=== PATIENT | female | born 1935 | race Caucasian/White ===

== ENCOUNTER → 2017-08-07 | Outpatient (CLI) | payer OTHER, BC | LOC: RAD 00:35 | DX: Z12.31 Encounter for screening mammogram for malignant neoplasm of breast (principal) ==

== ENCOUNTER → 2019-03-14 | Outpatient (CLI) | payer OTHER, BC | LOC: RAD 15:01 | DX: Z12.31 Encounter for screening mammogram for malignant neoplasm of breast (principal) ==

== ENCOUNTER 2020-06-12 17:03 | Emergency (ER) | payer OTHER, BC ==
[~2020-06-12] VITALS: Ht 157.5 cm; Wt 50.4 kg
[2020-06-12 17:42] LABS: BASOPHILS 0.6 % (0.0-2.0); EOSINOPHILS 1.3 % (0.0-3.0); HEMATOCRIT 35.5 % (37.0-47.0); HEMOGLOBIN 11.7 gm/dL (12.0-15.0); LYMPHOCYTES 20.1 % (24.0-44.0); MCH 30.9 pg (26.0-34.0); MCV 93.6 fL (80.0-100.0); MONOCYTES 8.2 % (1.0-8.0); PLATELET COUNT 317 thou/uL (150-400); POLYS 69.8 % (36.0-66.0); RDW 13.3 % (10.5-14.5)
[2020-06-12 17:50] LABS: URINE BILIRUBIN NEGATIVE (Negative); URINE BLOOD NEGATIVE (Negative); URINE CLARITY CLEAR; URINE COLOR YELLOW; URINE GLUCOSE-RANDOM* 3+ (Negative); URINE KETONES 1+ (Negative); URINE LEUKOCYTES-REFLEX NEGATIVE (Negative); URINE NITRITE-REFLEX NEGATIVE (Negative); URINE PROTEIN (DIPSTICK) NEGATIVE (Negative); URINE UROBILINOGEN 0.2 E.U./dl (0.2-1.0)
[2020-06-12 17:53] LABS: PROTIME 9.5 Seconds (9.3-11.4)
[2020-06-12 18:03] LABS: CALCIUM 9.8 mg/dL (8.5-10.1); CREATININE 1.1 mg/dL (0.6-1.0)
[2020-06-12 18:06] LABS: POTASSIUM 5.1 mmol/L (3.5-5.1)
[2020-06-12 18:19] VITALS: BP 170/82
--- NOTE | 2020-06-13 12:45 | EKG ---
[address] [address] ELECTROCARDIOGRAM REPORT Name: QASIM JONES Room #: [id number] Admission: 06/12/20 Attend Phys: Discharge: 06/12/20 Date of : 33 Report #: [id number] [facility] ED Test Date: 2020-06-12 Test Time: 18:00:52 Pat Name: QASIM JONES Department: Room: Gender: F Hat Lacer: linden : 1935 Requested By: Terese Muse Order Number: [id number] MD: Kishan Arnold Measurements Intervals [place] Rate: 101 P: 72 OR: 199 QRS: 32 QRSD: 87 T: 20 QT: 348 QTc: 452 Interpretive Statements Sinus tachycardia Otherwise normal tracing No previous ECG available for comparison Electronically Signed On 06-13-2020 12:45:22 SCREEN TENDER HELPER by Kishan Arnold [email or web address] <ELECTRONICALLY SIGNED> By: Kishan Arnold MD, [facility] 06/13/20 1245 1800 [facility] Kishan Arnold MD, FACC /EPI
== END 2020-06-12 18:57 | disposition home or self-care (01) ==
LOC: ER 17:03
PROVIDERS: Emergency Medicine
DX: G45.9 Transient cerebral ischemic attack, unspecified (principal); R73.9 Hyperglycemia, unspecified

== ENCOUNTER 2021-02-17 22:17 | Inpatient (IN) | payer OTHER, BC ==
[~2021-02-17] VITALS: Ht 157.5 cm; Wt 55.4 kg
[2021-02-17 22:19] VITALS: BP 160/84
[2021-02-17 23:41] LABS: HEMATOCRIT 36.2 % (37.0-47.0); HEMOGLOBIN 12.1 gm/dL (12.0-15.0); MCH 30.9 pg (26.0-34.0); MCHC 33.4 g/dL (28.0-37.0); MCV 92.5 fL (80.0-100.0); PLATELET COUNT 329 thou/uL (150-400); RBC 3.92 mil/uL (4.20-5.00); RDW 13.3 % (10.5-14.5)
[2021-02-17 23:46] LABS: CALCIUM 8.9 mg/dL (8.5-10.1); POTASSIUM 4.4 mmol/L (3.5-5.1)
[2021-02-17 23:53] LABS: APTT 24.3 Seconds (24.5-32.8); INR 0.9; PROTIME 9.9 Seconds (10.5-12.1)
[2021-02-17 23:55] LABS: TOTAL BILIRUBIN 0.2 mg/dL (0.2-1.0)
[2021-02-17 23:56] LABS: ALBUMIN 3.9 g/dL (3.4-5.0)
[2021-02-18] VITALS (7 sets, daily range): BP systolic 146–170; BP diastolic 80–99
[2021-02-18 00:43] LABS: URINE BILIRUBIN NEGATIVE (Negative); URINE BLOOD NEGATIVE (Negative); URINE CLARITY CLEAR; URINE COLOR YELLOW; URINE GLUCOSE-RANDOM* 3+ (Negative); URINE KETONES 1+ (Negative); URINE LEUKOCYTES-REFLEX NEGATIVE (Negative); URINE NITRITE-REFLEX NEGATIVE (Negative); URINE PROTEIN (DIPSTICK) NEGATIVE (Negative); URINE SPECIFIC GRAVITY 1.025 (1.005-1.035); URINE UROBILINOGEN 0.2 E.U./dl (0.2-1.0)
[2021-02-18 00:49] LABS: ABSOLUTE NEUTROPHILS 23.5 thou/uL (1.4-8.2); ANISOCYTOSIS 1+; PLATELET ESTIMATE NORMAL; POIKILOCYTOSIS 1+
[2021-02-18] MEDS ORDERED: LEVO-T75 MCG PO (00:58)
[2021-02-18] MEDS ORDERED: PRAVACHOL40 MG PO (00:59)
[2021-02-18] MEDS ORDERED: ASA81BEC PO (00:59)
[2021-02-18] MEDS ORDERED: NORVASC5 M1 PO (00:59)
[2021-02-18] MEDS ORDERED: MELATONIN5 MG SUBLING (01:00)
[2021-02-18] MEDS ORDERED: REPAGLINIDE1 MG PO (01:00)
[2021-02-18] MEDS ORDERED: LISINOPRIL20 MG PO (01:00)
[2021-02-18 04:44] LABS: HEMATOCRIT 35.4 % (37.0-47.0); HEMOGLOBIN 11.5 gm/dL (12.0-15.0); MCH 30.1 pg (26.0-34.0); MCHC 32.5 g/dL (28.0-37.0); MCV 92.7 fL (80.0-100.0); RBC 3.82 mil/uL (4.20-5.00); RDW 13.4 % (10.5-14.5); WBC 21.8 thou/uL (4.0-11.0)
[2021-02-18 05:42] LABS: CALCIUM 8.9 mg/dL (8.5-10.1); POTASSIUM 4.5 mmol/L (3.5-5.1)
--- NOTE | 2021-02-18 12:45 | NUR ---
Pt transferred to unit from ED. Pt alert but forgetful. Lt arm sling in place. Denies pain. IVF infusing. Ortho, neurology, and hospitalist doctor consulted. Dr Bustamante is out of the office and will be unable to be consulted at this time. Admission completed. Call light within reach. Fall precautions in place. Will continue to monitor.
--- NOTE | 2021-02-18 13:22 | EKG ---
[address] [place] [address] ELECTROCARDIOGRAM REPORT Name: QASIM JONES Room #: 436-P ADM IN M.R.#: [id number] Admission: 02/18/21 Attend Phys: Carlos Rajan, Discharge: Date of : 33 Report #: [id number] [facility] ED Test Date: 2021-02-18 Test Time: 00:24:30 Pat Name: QASIM JONES Department: Room: 436 Gender: F Correctional Officer Chief: : 1935 Requested By: Manny Luther Order Number: [id number] MD: Mendel Caro Measurements Intervals [place] Rate: 122 P: 54 PA: 186 QRS: 10 QRSD: 90 T: 5 QT: 302 QTc: 431 Interpretive Statements Sinus tachycardia LVH by voltage Compared to ECG 06/12/2020 18:00:52 Left ventricular hypertrophy now present Electronically Signed On 02-18-2021 13:22:35 CDT by Mendel Caro [email or web address] <ELECTRONICALLY SIGNED> By: Mendel Caro MD, [facility] 02/18/21 1322 0024 0024 Mendel Caro MD, FACC /EPI
[2021-02-19] VITALS (8 sets, daily range): BP systolic 148–170; BP diastolic 86–100
--- NOTE | 2021-02-19 05:22 | NUR ---
RECEIVED CARE OF THIS PATIENT AT 1900. PATIENT ALERT AND ORIENTED TO PERSON AND PLACE. PATIENT NPO [place] FOR SURGERY THIS AM. L EST IN SLING. BRUISING NOTED ON L SHOULDER. ACCUCHECK WAS 256, RECEIVED 6 UNITS LISPRO INSULIN. UP TO BS WITH ASSIST OF ONE. DENIES PAIN. SLEPT MOST OF NIGHT.
[2021-02-19 06:32] LABS: HEMATOCRIT 32.4 % (37.0-47.0); HEMOGLOBIN 10.8 gm/dL (12.0-15.0); MCH 31.4 pg (26.0-34.0); MCHC 33.4 g/dL (28.0-37.0); RBC 3.45 mil/uL (4.20-5.00); RDW 13.6 % (10.5-14.5)
[2021-02-19 06:47] LABS: CALCIUM 8.5 mg/dL (8.5-10.1); CREATININE 0.8 mg/dL (0.6-1.0); POTASSIUM 3.7 mmol/L (3.5-5.1)
--- NOTE | 2021-02-19 10:11 | NUR ---
Assumed care of pt at 0700. Pt alert but forgetful. Denies pain. x1 assist to bedside commode. Left arm sling in place. IVF and IV antibiotics infusing. Plan to have surgery today. NPO since midnight. Family aware. Call light within reach. Fall precautions in place. Will continue to monitor.
--- NOTE | 2021-02-20 03:18 | NUR ---
PT LYING IN BED. LORTAB PROVIDING PAIN RELIEF. PT RETAINING URINE. STRAIGHT CATH PRODUCED 1300ML THOUGH PT HAS BEEN INCONTINENT. PER DOCTOR PLACE JARVIS CATHETER. RESTING COMFPRTABLY. NO NEEDS VOICED. CALL LIGHT WITHIN REACH. FREQUENT OBSERVATION.
[2021-02-20 05:40] LABS: ABSOLUTE NEUTROPHILS 15.5 thou/uL (1.4-8.2); BASOPHILS 0.1 % (0.0-2.0); EOSINOPHILS 0.1 % (0.0-3.0); HEMATOCRIT 32.7 % (37.0-47.0); HEMOGLOBIN 10.8 gm/dL (12.0-15.0); LYMPHOCYTES 8.2 % (24.0-44.0); MCH 30.4 pg (26.0-34.0); MCHC 32.9 g/dL (28.0-37.0); MCV 92.4 fL (80.0-100.0); MONOCYTES 10.9 % (1.0-8.0); PLATELET COUNT 293 thou/uL (150-400); POLYS 80.7 % (36.0-66.0); RBC 3.54 mil/uL (4.20-5.00); RDW 13.5 % (10.5-14.5); WBC 19.2 thou/uL (4.0-11.0)
[2021-02-20 06:39] LABS: ALBUMIN 2.9 g/dL (3.4-5.0); CALCIUM 8.2 mg/dL (8.5-10.1); CREATININE 0.7 mg/dL (0.6-1.0); MAGNESIUM 1.8 mg/dL (1.8-2.4); PHOSPHORUS 2.5 mg/dL (2.5-4.9); POTASSIUM 3.8 mmol/L (3.5-5.1); TOTAL BILIRUBIN 0.3 mg/dL (0.2-1.0); TOTAL PROTEIN 6.6 g/dL (6.4-8.2)
[2021-02-20 07:43] VITALS: BP 145/83
--- NOTE | 2021-02-20 11:16 | NUR ---
ASSUMED PT CARE THIS AM. PT IS ALERT & ORIENTED X2 TO SELF AND SITUATION. PT HAS IV SITE ON RFA SALINE LOCKED. PT IS ACCUCHECK ACHS. BLADDER SCAN THIS AM AND IT WAS >302. REPLACED 18F JARVIS CATH TO 16F THIS AM DUE TO URINARU RETENTION. PT IS ON 2L O2 NC. PT IS A FEEDER. CAN SWALLOW MEDS WHOLE WITHOUT DIFFICULTY. PT ON THE BED SLEEPING, BED ON THE LOWEST POSITION, SIDE RAILS UP, CALL LIGHT WITHIN REACH. WILL CONTINUE TO MONITOR PT. FOLLOW POC.
[2021-02-20 16:10] VITALS: BP 137/82
[2021-02-20 19:05] VITALS: BP 136/73
--- NOTE | 2021-02-21 04:20 | NUR ---
PT LYING IN BED. JARVIS CATHETER IN PLACE. LORTAB AND MORPHINE PROVIDING PAIN RELIEF. CURRENTLY RESTING COMFORTABLY. CALL LIGHT WITHIN REACH. FREQUENT OBSERVATION.
[2021-02-21 07:06] VITALS: BP 178/95
[2021-02-21 11:13] LABS: HEMOGLOBIN 11.2 gm/dL (12.0-15.0); MCH 30.2 pg (26.0-34.0); MCV 94.2 fL (80.0-100.0); RBC 3.71 mil/uL (4.20-5.00); RDW 13.5 % (10.5-14.5); WBC 13.3 thou/uL (4.0-11.0)
[2021-02-21 11:22] LABS: CALCIUM 8.3 mg/dL (8.5-10.1); CREATININE 0.9 mg/dL (0.6-1.0); POTASSIUM 4.1 mmol/L (3.5-5.1)
--- NOTE | 2021-02-21 11:58 | NUR ---
ASSESSMENT: CM REVIEWED CHART AND MET WITH PATIENT AT THE BEDSIDE. PT IS CONFUSED. CM REACHED OUT TO PATIENTS KELLY WELL HER SON DR. MEDINA ROBERT ([facility]). PT IS FROM [facility] WHERE SHE LIVES WITH HER WITH ASSISTANCE FROM PRIVATE DUTY HELP DURING THE DAYS (7AM-9PM). PT WAS NORMALLY ABLE TO AMBULATE WELL USING A WALKER BUT ALSO HAS A TRANSPORT CHAIR AT HOME. CM SPOKE WITH ATTENDING WHO IS RECOMMENDING SNF FOR PATIENT. CM DISCUSSED THIS WITH PATIENTS WELL PATIENTS SON AND LEFT A SNF LIST AT THE BEDSIDE. PTS AND SON PLAN ON VISITING PATIENT THIS AFTERNOON AND WILL REVIEW THE LIST SO CM CAN SEND OUT REFERRALS. CM WILL CONTINUE TO FOLLOW TO ASSIST NEEDED.
--- NOTE | 2021-02-21 14:47 | NUR ---
Assumed pt care at 7am.Pt in bed alert and oriented to self.Assessment completed.vss. Meds given with meals and well tolerated. Film Painter transfered pt to chair after breakfast. Pt continously crying saying "I don't want go into closet" pain med given and when she won't stop crying,Dr Mahan notified and order noted. Pt transfered to bed and she fell asleep after some minutes. Will continue to monitor.
[2021-02-21 15:52] VITALS: BP 143/86
[2021-02-21 19:37] VITALS: BP 131/71
--- NOTE | 2021-02-22 02:11 | NUR ---
PT WAS OBSRVED LYING ON HER BED WITH HER EYES OPEN AT SHIFT CHANGE.PT ALERT TO SELF/CONFUSED AND FORGETFUL.PAIN MED GIVEN FOR PAIN RELIEF.MEDS TAKEN WHOLE ONE AT A TIME.JARVIS CATH TO DD.SLING TO HER L SHOULDER.ION C/D/I.CALL LIGHT WITHIN REACH.
[2021-02-22 04:24] VITALS: BP 134/86
[2021-02-22 08:08] VITALS: BP 136/81
[2021-02-22 08:11] LABS: ABSOLUTE NEUTROPHILS 7.7 thou/uL (1.4-8.2); BASOPHILS 0.6 % (0.0-2.0); EOSINOPHILS 2.1 % (0.0-3.0); HEMATOCRIT 33.2 % (37.0-47.0); HEMOGLOBIN 10.6 gm/dL (12.0-15.0); LYMPHOCYTES 20.7 % (24.0-44.0); MCH 30.1 pg (26.0-34.0); MCHC 32.1 g/dL (28.0-37.0); MONOCYTES 11.4 % (1.0-8.0); PLATELET COUNT 332 thou/uL (150-400); POLYS 65.2 % (36.0-66.0); RBC 3.53 mil/uL (4.20-5.00); RDW 13.2 % (10.5-14.5); WBC 11.8 thou/uL (4.0-11.0)
[2021-02-22 08:49] LABS: CALCIUM 8.5 mg/dL (8.5-10.1); CREATININE 0.8 mg/dL (0.6-1.0); PHOSPHORUS 3.6 mg/dL (2.5-4.9); POTASSIUM 4.8 mmol/L (3.5-5.1)
[2021-02-22 10:00] VITALS: BP 136/81
[2021-02-22] MEDS ORDERED: HYDROCODON-ACE1 EAC7 PO (12:41)
[2021-02-22] MEDS ORDERED: ACETAMINOPHEN325 M1 PO (12:41)
[2021-02-22] MEDS ORDERED: METOPROLOL SUCC25 M1 PO (12:41)
[2021-02-22] MEDS ORDERED: MIRALAX17 GM PO (12:41)
[2021-02-22] MEDS ORDERED: COLACE 100 MG100 MG PO (12:41)
[2021-02-22] MEDS ORDERED: TRADJENTA5 MG PO (12:50)
[2021-02-22] MEDS ORDERED: KEFLEX250 MG PO (12:52)
[2021-02-22] MEDS ORDERED: LANTUS100 UNIT/M SUBQ (12:52)
--- NOTE | 2021-02-22 14:20 | NUR ---
ON-GOING ASSESSMENT: cm reviewed CHART AND SPOKE WITH ATTENDING WHO FEELS PATIENT IS STABLE TO DISCHARGE TO SNF. CM SPOKE WITH PATIENT, HER , AND HER SON ADAM WHO ARE AGREEABLE WITH PLAN BUT PREFER SHE GO TO [facility] HER PCP IS THE [employer]PER[employer] TRANSFORMER ASSEMBLER THERE (DR. OTERO). CM SPOKE WITH WILLY HINDS AT [facility] WHO REPORTS THEY CAN ACCEPT PATIENT TODAY. CM ORDERED A CHART COPY AND NOTIFIED ASSISTANT FOREMAN. CM FAXED D/C PAPERWORK TO THE FACILITY AND CONFIRMED THEY RECEIVED IT. TRANSPORTATION HAS BEEN ARRANGED FOR 4PM. PT AND FAMILY ARE AWARE WELL BEDSIDE RN. BEDSIDE RN HAS THE NUMBER FOR REPORT. CM ALSO FAXED UPDATED NEGATIVE COVID TEST TO [facility] TODAY. PT REPORTS NO FURTHER NEEDS FROM . CASE CLOSED.
--- NOTE | 2021-02-22 16:15 | NUR ---
PT ASSESSED AT START OF SHIFT. PT W/ SOME EXPRESSIVE APHASIA BUT ABLE TO ANSWER YES/NO QUESTIONS. PAIN AND ANXIETY MEDICINE GIVEN PT YELLING LOUDLY. UP TO THE CHAIR PER THERAPY AND SAT UP FOR SEVERAL HOURS. SON AND HERE THIS AFTERNOON. PT DISCHARGED TO FACILITY AT THIS TIME W/ ALL BELONGINGS.
== END 2021-02-22 16:31 | DRG 515 ==
LOC: ER 22:17 → EROBS 02-18 01:35 → 4S 02-18 11:54
PROVIDERS: Emergency Medicine; Hospitalist; Internal Medicine; Nurse Practitioner Family; ADMIT Surgery; ATTEND Surgery
PROC: 0T9B70Z Drainage of Bladder with Drainage Device, Via Natural or Artificial Opening (ICD-10-PCS; principal; 2021-02-19)
PROC: 2W39X1Z Immobilization of Left Upper Extremity using Splint (ICD-10-PCS; 2021-02-19)
PROC: 0PSB04Z Reposition Left Clavicle with Internal Fixation Device, Open Approach (ICD-10-PCS; 2021-02-19)
DX: S42.032A Displaced fracture of lateral end of left clavicle, initial encounter for closed fracture (principal); G93.41 Metabolic encephalopathy; S12.300A Unspecified displaced fracture of fourth cervical vertebra, initial encounter for closed fracture; S22.049A Unspecified fracture of fourth thoracic vertebra, initial encounter for closed fracture; N17.9 Acute kidney failure, unspecified; R65.10 Systemic inflammatory response syndrome (SIRS) of non-infectious origin without acute organ dysfunction; N39.0 Urinary tract infection, site not specified; I10 Essential (primary) hypertension; D72.829 Elevated white blood cell count, unspecified; D64.9 Anemia, unspecified; R33.9 Retention of urine, unspecified; E03.9 Hypothyroidism, unspecified; E11.65 Type 2 diabetes mellitus with hyperglycemia; S00.01XA Abrasion of scalp, initial encounter; S16.1XXA Strain of muscle, fascia and tendon at neck level, initial encounter; S09.90XA Unspecified injury of head, initial encounter; E78.5 Hyperlipidemia, unspecified; G47.00 Insomnia, unspecified; F03.90 Unspecified dementia, unspecified severity, without behavioral disturbance, psychotic disturbance, mood disturbance, and anxiety; W18.39XA Other fall on same level, initial encounter; Y93.89 Activity, other specified; Y92.89 Other specified places as the place of occurrence of the external cause; Y99.8 Other external cause status
CPT/HCPCS: 10102; 50010; 50101; 50341; 50386; 50403; 54118; 56525; 56531; 56667; 59009; 62110; 62900; 70005